=== PATIENT | female | born 1985 | race Caucasian/White ===

== ENCOUNTER → 2016-08-21 | Outpatient (CLI) | payer BC | END | disposition home or self-care (01) | LOC: MW.CHFP 11:03 | PROVIDERS: ATTEND Physician Assistant | DX: J02.9 Acute pharyngitis, unspecified (principal) | CPT/HCPCS: 87880 ==

== ENCOUNTER 2017-03-14 11:16 | Emergency (ER) | payer BC ==
--- NOTE | 2017-03-14 11:29 | EDM.PDOC ---
ED HPI GENERAL MEDICAL PROBLEM - General Chief Complaint: Chest Pain Stated Complaint: CHEST PAIN Time Seen by Provider: 03/14/17 11:21 - History of Present Illness INITIAL COMMENTS - FREE TEXT/NARRATIVE: HISTORY AND PHYSICAL: History of present illness: Patient 31-year-old white female presents with chest pain this is vaguely described without associated palpitations shortness breath nausea vomiting or diaphoresis patient has history of hypertension and is compliant with her medications Review of systems: As per history of present illness and below otherwise all systems reviewed and negative. Past medical history: As per history of present illness and as reviewed below otherwise noncontributory. Surgical history: As per history of present illness and as reviewed below otherwise noncontributory. Social history: No reported history of drug or alcohol abuse. Family history: As per history of present illness and as reviewed below otherwise noncontributory. Physical exam: HEENT: Atraumatic, normocephalic, pupils reactive, negative for conjunctival pallor or scleral icterus, mucous membranes moist, throat clear, neck supple, nontender, trachea midline. Lungs: Clear to auscultation, breath sounds equal bilaterally, chest nontender. Heart: S1S2, regular, negative for clicks, rubs, or JVD. Abdomen: Soft, nondistended, nontender. Negative for masses or hepatosplenomegaly. Negative for costovertebral tenderness. Pelvis: Stable nontender. Genitourinary: Deferred. Rectal: Deferred. Extremities: Atraumatic, negative for cords or calf pain. Neurovascular unremarkable. Neuro: Awake, alert, oriented. Cranial nerves II through XII unremarkable. Cerebellum unremarkable. Motor and sensory unremarkable throughout. Exam nonfocal. Diagnostics: EKG chest x-ray Therapeutics: None Impression: #1 atypical chest pain Definitive disposition and diagnosis as appropriate pending reevaluation and review of above. chest pain Pain Score (Numeric/FACES): 1 - Related Data Allergies Allergy/AdvReac Type Severity Reaction Status Date / Time No Known Allergies Allergy Verified 03/14/17 11:20 Home Meds: Home Meds Acetaminophen [Tylenol] 325 mg PO DAILY PRN 11/01/15 [History] Calcium Carbonate [Tums Extra Strength] 1 tab PO Q6H PRN 11/01/15 [History] Vit W-Ca,Fe,FA(<1 mg) [ Vitamins] 1 each PO DAILY 11/01/15 [ History] Acetaminophen/oxyCODONE [Percocet 325-5 MG] 1 - 2 tab PO Q4H PRN #40 tablet [Rx] Labetalol [Normodyne] 200 mg PO TID 11/13/15 [History] NIFEdipine [Procardia] 10 mg PO TID 11/13/15 [History] Hydrochlorothiazide 50 mg PO DAILY #30 tablet 11/17/15 [Rx] Lisinopril [Prinivil] 20 mg PO BID #60 tablet 11/17/15 [Rx] Pantoprazole [ProTONIX] 40 mg PO DAILY #30 tab.cr 11/17/15 [Rx] Past Medical History HEENT History: Reports: Other (See Below) Other HEENT History: wears prescription glasses Cardiovascular History: Reports: Hypertension Other Cardiovascular History: pre eclampsia Respiratory History: Reports: Asthma Gastrointestinal History: Reports: Cholelithiasis Genitourinary History: Reports: None Other Genitourinary History: hx renal stones [employer] History: Reports: Musculoskeletal History: Reports: Other (See Below) Other Musculoskeletal History: Crack Vertebrae Neurological History: Reports: Migraines Other Neuro History: last migraine 1 year ago per patient. Psychiatric History: Reports: Anxiety Endocrine/Metabolic History: Reports: None Hematologic History: Reports: None Immunologic History: Reports: None Oncologic (Cancer) History: Reports: None Dermatologic History: Reports: None - Infectious Disease History Infectious Disease History: Reports: None - Past Surgical History Head Surgeries/Procedures: Reports: None GI Surgical History: Reports: Cholecystectomy Female Surgical History: Reports: Section Social & Family History - Family History Family Medical History: Noncontributory Cardiac: Reports: Hypertension Respiratory: Reports: Asthma - Tobacco Use Smoking Status *Q: Never Smoker - Caffeine Use Caffeine Use: Reports: Coffee - Recreational Drug Use Recreational Drug Use: No ED ROS GENERAL - Review of Systems Review Of Systems: ROS reveals no pertinent complaints other than HPI. ED EXAM, GENERAL - Physical Exam Exam: See Below (See dictation) Course - Vital Signs Last Recorded V/S: Last Vital Signs Temp 36.2 C 03/14/17 11:20 Pulse 85 03/14/17 11:20 Resp 18 03/14/17 11:20 BP 159/83 H 03/14/17 11:20 Pulse Ox 98 03/14/17 11:20 - Orders/Labs/Meds Orders: Active Orders 24 hr Category Date Time Status Chest 1V Frontal [CR] Stat Exams 03/14/17 11:26 Ordered Departure - Departure Time of Disposition: : Disposition: Home, Self-Care 01 Condition: Good Clinical Impression: Atypical chest pain - Discharge Information Referrals: PCP,Unknown [Primary Care Provider] - Additional Instructions: The following information is given to patients seen in the emergency department who are being discharged to home. This information is to outline your options for follow-up care. We provide all patients seen in our emergency department with a follow-up referral. The need for follow-up, as well as the timing and circumstances, are variable depending upon the specifics of your emergency department visit. If you don't have a primary care physician on staff, we will provide you with a referral. We always advise you to contact your personal physician following an emergency department visit to inform them of the circumstance of the visit and for follow-up with them and/or the need for any referrals to a consulting specialist. The emergency department will also refer you to a specialist when appropriate. This referral assures that you have the opportunity for followup care with a specialist. All of these measure are taken in an effort to provide you with optimal care, which includes your followup. Under all circumstances we always encourage you to contact your private physician who remains a resource for coordinating your care. When calling for followup care, please make the office aware that this follow-up is from your recent emergency room visit. If for any reason you are refused follow-up, please contact the [facility] emergency department at and asked to speak to the emergency department charge nurse. Follow-up primary medical doctor 1-2 days Motrin/Tylenol as directed return as needed as discussed] - My Orders Last 24 Hours: My Active Orders 03/14/17 11:26 Chest 1V Frontal [CR] Stat - Assessment/Plan Last 24 Hours: My Active Orders 03/14/17 11:26 Chest 1V Frontal [CR] Stat
[2017-03-14] MEDS ORDERED: Sodium Chloride 0.9% 2.5 ML Syringe FLUSH PRN (11:43)
[2017-03-14] MEDS ORDERED: Sodium Chloride 0.9% 10 ML Syringe FLUSH PRN (11:43)
[2017-03-14 12:33] VITALS: BP 138/94
--- NOTE | 2017-03-15 07:50 | CR ---
EXAM DATE: 03/14/17 PATIENT'S AGE: 31 Patient: MARIBEL PITTMAN Facility: [place], [place] Site . Site : 1985 Study: XRay Chest [id number] 11:38:35 AM Ordering Physician: Cynthia Vilchis Final Report: Indication: Chest pain Technique: AP chest Comparison: Portable chest on 11/08/2015. Findings: Heart and mediastinum are normal in size. Pulmonary vessels are normal. The lungs are clear. No pleural fluid. No acute bony abnormality. Impression: Stable chest with no evidence of acute disease Dictated by Sara Coburn MD @ Mar 14 2017 11:41AM (Electronic Signature) Report Signed by Proxy. IRENE
== END 2017-03-14 12:33 | disposition home or self-care (01) ==
LOC: MW.ED 11:16
DX: R07.89 Other chest pain (principal); J45.909 Unspecified asthma, uncomplicated; I10 Essential (primary) hypertension; Z79.899 Other long term (current) drug therapy
CPT/HCPCS: 71010; 71010-26; 93005; 99283; 99285